=== PATIENT | female | born 1960 | race Asian ===

== ENCOUNTER 2021-07-06 08:01 | Outpatient (CLI) | payer MEDICAID ==
[2021-07-06 12:00] LABS: BASOPHILS % (AUTO) 0.6 %; EOSINOPHILS # (AUTO) 0.1 10^3/uL (0.0-0.7); EOSINOPHILS % (AUTO) 2.2 %; HCT - HEMATOCRIT 48.8 % (37.0-47.0); HGB - HEMOGLOBIN 14.8 g/dL (12.0-16.0); LYMPHOCYTES # (AUTO) 2.4 10^3/uL (1.5-3.5); LYMPHOCYTES % (AUTO) 47.8 %; MEAN CORPUSCULAR HEMOGLOBIN 23.3 pg (27.0-31.0); MEAN CORPUSCULAR HGB CONC 30.3 g/dL (32.0-36.0); MEAN CORPUSCULAR VOLUME 76.7 fL (81.0-99.0); MEAN PLATELET VOLUME 9.7 fL (7.9-10.8); MONOCYTES # (AUTO) 0.4 10^3/uL (0.0-1.0); MONOCYTES % (AUTO) 7.4 %; NEUTROPHILS # (AUTO) 2.1 10^3/uL (1.5-6.6); NEUTROPHILS % (AUTO) 41.8 %; PLT - PLATELET COUNT 197 10^3/uL (130-450); RED BLOOD COUNT 6.36 10^6/uL (4.20-5.40); RED CELL DISTRIBUTION WIDTH 16.6 % (12.0-15.0)
[2021-07-06 12:09] LABS: ALBUMIN 4.9 g/dL (3.2-5.5); ALBUMIN/GLOBULIN RATIO 1.5 (1.0-2.2); BILIRUBIN,TOTAL 0.7 mg/dL (0.2-1.0); CALCIUM 9.8 mg/dL (8.5-10.3); CREATININE 0.7 mg/dL (0.4-1.0); POTASSIUM 4.1 mmol/L (3.5-5.0); TOTAL PROTEIN 8.1 g/dL (6.7-8.2)
== END 2021-07-06 08:02 | disposition home or self-care (01) ==
LOC: LAB.N 08:01
PROVIDERS: ATTEND Family Medicine
DX: K58.9 Irritable bowel syndrome, unspecified (principal); R10.9 Unspecified abdominal pain
CPT/HCPCS: 36415; 80053; 81599; 82705; 83520; 83630; 83690; 83993; 85025

== ENCOUNTER 2022-02-20 14:47 | Outpatient (CLI) | payer MEDICAID | END 2022-02-20 14:48 | disposition home or self-care (01) | LOC: LAB.N 14:47 | PROVIDERS: ATTEND Internal Medicine | DX: Z53.9 Procedure and treatment not carried out, unspecified reason (principal) ==

== ENCOUNTER 2022-02-26 08:00 | Outpatient (CLI) | payer MEDICAID ==
[2022-02-26 15:48] LABS: H. PYLORIS ANTIGEN STL NEGATIVE (Negative)
== END 2022-02-26 23:59 | disposition home or self-care (01) ==
LOC: LAB.R 08:00
PROVIDERS: ATTEND Internal Medicine
DX: A04.8 Other specified bacterial intestinal infections (principal)
CPT/HCPCS: 87338

== ENCOUNTER 2022-02-28 12:33 | Emergency (ER) | payer MEDICAID ==
--- NOTE | 2022-02-28 13:01 | ED Physician Documentation ---
PD HPI LOWER EXT INJURY - Stated complaint Stated Complaint: R LEG PAIN - Chief complaint Chief Complaint: Ext Problem - History obtained from History obtained from: Patient - History of Present Illness PD HPI LOW EXT INJURY LOCATION: Right, Knee Type of injury: Other (she awoke from sleep with pain in right knee, that has gradually worsened with swelling of knee. Now cannot move it out of midflexion without increased pain. No locking/giving out. No redness. No other joints hurting.). No: Fall, Twist Where injury occurred: Home Timing - onset: How many days ago (3) Timing - duration: Days (3) Timing - details: Gradual onset, Still present Improved by: Rest Worsened by: Moving, Palpating Associated symptoms: Swelling. No: Weakness, Numbness, Discolored Contributing factors: No: Prior ortho surgery Similar symptoms before: Has not had sx before Recently seen: Not recently seen Review of Systems Constitutional: denies: Fever, Chills, Myalgias GI: denies: Nausea, Vomiting Skin: denies: Rash, Lesions Musculoskeletal: reports: Joint pain (just the right knee anteriorly), Joint swelling PD PAST MEDICAL HISTORY - Past Medical History Cardiovascular: None Respiratory: None Musculoskeletal: None - Present Medications Home Medications: Ambulatory Orders Medication Instructions Recorded Confirmed HYDROcod/ACETAM 5/325 [[place] 5/325] 1 ea PO Q6H PRN #14 tablet 02/28/22 Naproxen 250 mg PO TID 7 Days #20 tablet 02/28/22 - Allergies Allergies/Adverse Reactions: Allergies Allergy/AdvReac Type Severity Reaction Status Date / Time No Known Drug Allergies Allergy Verified 02/28/22 12:44 PD ED PE NORMAL - Vitals Vital signs reviewed: Yes - General General: Alert and oriented X 3, Well developed/nourished, Other (appears in pain and holding right knee mid flexed about 45 degrees. ) - Derm Derm: Normal color, Warm and dry, No rash - Extremities Extremities: Other (right knee with moderate effusion. No redness. Mild warmth. No skin lesions. Ligament testing limited due to pain. 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 Neutrophils % 90 Fluid Lymphocytes % 0 Fluid Monocytes % 10 Fld Mesothelial Cell % Not Reportable Fluid Crystals NONE SEEN - Rads (name of study) right knee Radiology: Prelim report reviewed (no acute process), See rad report Procedures - Arthrocentesis Joint: Knee Preparation: Consent obtained (verbal), Sterile prep and drape Anesthesia: Lidocaine 1%, Marcaine 0.25% Fluid: Clear, Sent for cell count, Sent for crystals, Sent for culture, Fluid o btained - cc (20) Aftercare: Dressing applied, No complications, Patient tolerated well PD MEDICAL DECISION MAKING - ED course Complexity details: re-evaluated patient (pain in knee much improved with fluid removed. ), considered differential (gout versus arthritis or meniscal injury. Does not seem infectious. Limited ROM due to effusion right now as well. discussed with patient and she agrees to arthrocentesis. ), d/w patient Departure - Departure Disposition: 01 Home, Self Care Clinical Impression: Knee effusion, right Acute knee pain Qualifiers: Laterality: right Qualified Code(s): M25.561 - Pain in right knee Condition: Stable Record reviewed to determine appropriate education?: Yes Instructions: ED Effusion Knee Follow-Up: GALINA HENRIQUEZ MD [Primary Care Provider] - Danie Huang MD [Provider Admit Priv/Credential] - Prescriptions: Naproxen 250 mg PO TID 7 Days #20 tablet HYDROcod/ACETAM 5/325 [[place] 5/325] 1 ea PO Q6H PRN #14 tablet PRN Reason: Pain Comments: We did draw some fluid from the knee which should help with some of the pressure and pain. The fluid in the knee as a result of some injury or irritation. Commonly this could be some inflammation of arthritis or gout. It could also be from an injury of the ligaments or meniscus. I would have you wrap elevate and ice the knee often to help keep swelling down. Use the knee immobilizer when up and around to support the ligaments and cartilage. Anti-inflammatories of naproxen 3 times a day with food for the next 5 to 7 days. Add Tylenol every 4-6 hours if needed for pain or hydrocodone if needed for worse pain. [facility]. If your knee pain improves over the next several days to week and you are feeling back to normal then no further follow-up is needed. If there is persistent pain or swelling in the knee, consideration would be for more of an injury such as a torn cartilage. This may require follow-up with a specialist and/or other types of imaging. Follow-up with orthopedics if persistent problems. My narcotic instructions I am prescribing a short course of narcotic pain medication for you. These are potentially dangerous and addictive medications that should be used carefully. These medications may constipate you. Take an [id number] stool softener such as docusate twice daily with plenty of water while taking these medications. If you go 24 hours without a bowel movement, take gjny-oxe-[id number] MiraLAX, per package instructions. Do not drink or drive while taking these medications. If you received narcotic or sedating medications while in the emergency department do not drive for 24 hours. Store this medication in a safe, secure place and out of reach of children. It is a violation of federal law to give or sell this medication to another person or to use in a manner other than prescribed. The ED will not refill narcotic prescriptions, including prescriptions lost or stolen. You can dispose of unwanted medications at the [facility]'s office or at several pharmacies such as [facility]. Discharge Date/Time: 02/28/22 14:52
[2022-02-28] MEDS: HYDROcod/ACETAM 5/325 MG TABLET PO STA (13:29)
--- NOTE | 2022-02-28 13:55 | XRAY Report ---
PROCEDURE: Knee 3 View RT INDICATIONS: knee pain 2 days, increasing TECHNIQUE: 3 views of the right knee(s) were acquired. COMPARISON: None. FINDINGS: Bones: No fractures or dislocations. No suspicious bony lesions. Mild tricompartmental osteoarthrit is. Soft tissues: Small joint effusion. No suspicious soft tissue calcifications. IMPRESSION: No acute osseous lesion. If symptoms and/or clinical concern for pathology persists, further assessme nt with repeat plain film radiographs (7-10 days) or advanced imaging (CT, MR, bone scan) should be c onsidered. Small nonspecific joint effusion. Reviewed by: Giuliana Briceno MD, PhD on 02/28/2022 1:54 PM PDT Approved by: Giuliana Briceno MD, PhD on 02/28/2022 1:54 PM PDT Station ID: [id number]
[2022-02-28 14:34] VITALS: BP 159/76
[2022-02-28 14:51] LABS: BF SOURCE KNEE; MONOCYTES %,BODY FLUID 10 %; NEUTROPHILS %, BF 90 %
[2022-02-28 14:52] LABS: BF CLARITY CLOUDY; BF COLOR YELLOW; LYMPHOCYTES %,BODY FLUID 0 %
== END 2022-02-28 14:52 | disposition home or self-care (01) ==
LOC: ED 12:33
DX: M25.561 Pain in right knee (principal); M25.461 Effusion, right knee
CPT/HCPCS: 20610; 73562; 89051; 89060; 99282; 99284; A9270; 87070; 87205